=== PATIENT | female | born 1940 | race Hispanic/Latino ===

== ENCOUNTER 2017-06-29 20:42 | Inpatient (IN) | payer OTHER ==
[~2017-06-29] VITALS: Ht 167.6 cm; Wt 62.6 kg
[2017-06-29 21:58] VITALS: BP 150/63
[2017-06-29] MEDS ORDERED: ONDANSETRON HCL INJ 2 MG/ML VIAL IV PRN (22:15)
[2017-06-29] MEDS ORDERED: ACETAMINOPHEN 325 MG TAB PO PRN (22:15)
[2017-06-29] MEDS ORDERED: ALBUTEROL/IPRATROPIUM 3 ML NEB NEB PRN (22:15)
[2017-06-29] MEDS ORDERED: SODIUM CHLORIDE 0.9% 1000ML 1,000 ML IV SCH (22:15)
[2017-06-30] VITALS: BP 130/58
[2017-06-30] MEDS ORDERED: LASIX20 MG PO (00:35)
[2017-06-30] MEDS ORDERED: CALCIUM-MAG-ZI1 EACH PO (00:35)
[2017-06-30] MEDS ORDERED: LISINOPRIL10 MG PO (00:35)
[2017-06-30] MEDS ORDERED: ASPIRIN325 MG PO (00:35)
[2017-06-30] MEDS ORDERED: NORTRIPTYLINE H10 MG PO (00:35)
[2017-06-30] MEDS ORDERED: NORCO 10-325 T1 EACH PO (00:35)
[2017-06-30] MEDS ORDERED: NEXIUM40 MG PO (00:35)
[2017-06-30] MEDS ORDERED: FLECAINIDE ACE100 MG PO (00:35)
[2017-06-30] MEDS ORDERED: CETIRIZINE HCL10 M1 PO (00:35)
[2017-06-30] MEDS ORDERED: ATENOLOL50 MG PO (00:35)
[2017-06-30] MEDS ORDERED: GABAPENTIN300 MG PO (00:35)
[2017-06-30] MEDS ORDERED: BUPROPION HCL100 MG PO (00:35)
[2017-06-30] MEDS ORDERED: XOPENEX HFA15 GM INH (00:35)
[2017-06-30] MEDS ORDERED: PRAVASTATIN SOD20 MG PO (00:35)
[2017-06-30] MEDS ORDERED: ZOFRAN ODT4 MG PO (00:35)
[2017-06-30 08:00] VITALS: BP 157/68
[2017-06-30] MEDS ORDERED: OSELTAMIVIR PHOSPHATE 75 MG CAP PO SCH (09:00)
[2017-06-30 11:30] VITALS: BP 144/62
[2017-06-30 16:00] VITALS: BP 141/64
--- NOTE | 2017-07-02 02:53 | Discharge Summary ---
FINAL DIAGNOSES 1. Influenza A. 2. Orthostasis hypotension. 3. Generalized weakness, resolved. 4. Dehydration. A 76-year-old female with influenza A. Patient felt weak, but no significant upper respiratory symptoms. The patient is otherwise stable. She had generalized weakness with dehydration, but she is doing much better now. Her blood pressure is stable. In the emergency room from outpatient ER, the patient had a BUN and creatinine ratio of 30. Patient also with orthostasis hypotension. Chest x-ray is otherwise unremarkable. She was in sinus bradycardia, but subsequently resolved. The oxygen saturation on room air was 97%. The patient was in observation. She will go home today with Tamiflu 75 mg twice a day for 5 days. The patient will resume all home medications. Will discontinue atenolol [address] the patient on lopressor 25 mg twice a day instead. The patient is otherwise stable. She will be followed by her family doctor next week. The patient is stable for discharge home today. Job#: [id number]
== END 2017-06-30 12:20 | disposition home or self-care (01) | DRG 195 ==
LOC: MED/SURG2 20:52 → UNDOADMIN 20:52 → MED/SURG2 21:48
PROVIDERS: ADMIT Internal Medicine; ATTEND Internal Medicine
DX: J10.1 Influenza due to other identified influenza virus with other respiratory manifestations (principal); E86.0 Dehydration; I95.1 Orthostatic hypotension; R53.1 Weakness
CPT/HCPCS: 36415; 82948; J7030